=== PATIENT | female | born 1985 | race Native Hawaiian/Other Pacific Islander ===

== ENCOUNTER 2020-06-25 21:01 | Inpatient (IN) | payer OTHER ==
[~2020-06-25] VITALS: Ht 165.1 cm; Wt 110.0 kg
[~2020-06-25 21:01] MED LIST: AZIT250 PO; DIPH50; MEDR150I
[2020-06-25 21:36] LABS: BASOPHILS ABSOLUTE AUTO 0.04 K/mm3 (0.00-0.23); BASOPHILS PERCENT AUTO 0 % (0-2); EOSINOPHILS ABSOLUTE AUTO 0.03 K/mm3 (0.00-0.68); EOSINOPHILS PERCENT AUTO 0 % (0-6); Hematocrit 39.7 % (33.0-51.0); Hemoglobin 13.2 g/dL (11.5-16.0); IMMATURE GRAN ABSOLUTE AUTO 0.11 K/mm3 (0.00-0.10); IMMATURE GRAN PERCENT AUTO 1 % (0-1); LYMPHOCYTES PERCENT AUTO 13 % (21-46); MONOCYTES ABSOLUTE AUTO 0.85 K/mm3 (0.16-1.47); MONOCYTES PERCENT AUTO 5 % (4-13); Mean Corpuscular HGB 28.3 pg (26.0-34.0); Mean Corpuscular HGB Conc 33.2 g/dL (31.5-36.5); Mean Corpuscular Volume 85 fL (80-100); Mean Platelet Volume 9.9 fL (9.1-12.4); NEUTROPHILS ABSOLUTE AUTO 12.53 K/mm3 (1.96-9.15); NEUTROPHILS PERCENT AUTO 80 % (41-73); Platelet Count 334 K/mm3 (150-400); RDW Coefficient Variation 12.9 % (11.7-14.2); RDW Standard Deviation 39.6 fL (35.1-46.3); Red Blood Cell Count 4.67 M/mm3 (3.80-5.20); White Blood Cell Count 15.66 K/mm3 (4.00-11.30)
[2020-06-25] MEDS ORDERED: ENOX40I SC (21:36)
[2020-06-25] MEDS ORDERED: PRENATAL TABLE1 EAC2 PO (21:36)
[2020-06-25] MEDS ORDERED: ASPI81CH PO (21:36)
[2020-06-25 22:53] LABS: International Normalized Ratio 0.95; Prothrombin Time Results 10.2 Sec (9.7-11.5)
[2020-06-26 13:38] LABS: BASOPHILS ABSOLUTE AUTO 0.04 K/mm3 (0.00-0.23); BASOPHILS PERCENT AUTO 0 % (0-2); EOSINOPHILS ABSOLUTE AUTO 0.08 K/mm3 (0.00-0.68); EOSINOPHILS PERCENT AUTO 1 % (0-6); Hematocrit 35.6 % (33.0-51.0); Hemoglobin 11.6 g/dL (11.5-16.0); IMMATURE GRAN ABSOLUTE AUTO 0.13 K/mm3 (0.00-0.10); IMMATURE GRAN PERCENT AUTO 1 % (0-1); LYMPHOCYTES ABSOLUTE AUTO 1.97 K/mm3 (0.84-5.20); LYMPHOCYTES PERCENT AUTO 12 % (21-46); MONOCYTES ABSOLUTE AUTO 1.21 K/mm3 (0.16-1.47); MONOCYTES PERCENT AUTO 7 % (4-13); Mean Corpuscular HGB 28.2 pg (26.0-34.0); Mean Corpuscular HGB Conc 32.6 g/dL (31.5-36.5); Mean Corpuscular Volume 87 fL (80-100); Mean Platelet Volume 10.3 fL (9.1-12.4); NEUTROPHILS PERCENT AUTO 79 % (41-73); Platelet Count 293 K/mm3 (150-400); RDW Coefficient Variation 12.9 % (11.7-14.2); Red Blood Cell Count 4.11 M/mm3 (3.80-5.20); White Blood Cell Count 16.63 K/mm3 (4.00-11.30)
--- NOTE | 2020-06-26 16:10 | NUR ---
MOTHER AND BABY SLEEPING. WILL CHECK VITALS AT ANOTHER TIME
--- NOTE | 2020-06-27 09:31 | NUR ---
RN ROUNDED TO HELP W/ . NB LATCHED WELL AT BREAST. PT STATES HAS BEEN GOING REALLY WELL. INSTRUCT/DEMO WIDENING LATCH, CORRECT POSITIONING AND NIPPLE SHAPE AFTER FEEDS. INSTRUCTED PT TO FEED NB EVERY 2-3 HOURS. PT IS LOVING W/ NB, DENIES ANY FURTHER QUESTIONS OR CONCERNS.
--- NOTE | 2020-06-27 11:56 | NUR ---
DISCHARGE INSTRUCTIONS GIVEN TO PT, RE-VERBALIZED UNDERSTANDING. DENIES ANY FURTHER QUESTIONS AT THIS TIME. BANDS MATCHED, HUGS REMOVED. PT WILL RETURN TOMORROW AT 0930 FOR NB JAUNDICE CHECK. DISCHARGED IN STABLE CONDITION.
== END 2020-06-27 12:21 | disposition home or self-care (01) | DRG 806 ==
LOC: OBS 21:01 → BC 21:01 → OBS 21:19 → BC 21:23
PROVIDERS: ADMIT Nurse Practitioner Obstetrics & Gynecology
PROC: 00HU33Z Insertion of Infusion Device into Spinal Canal, Percutaneous Approach (ICD-10-PCS; 2020-06-25)
PROC: 3E0R3BZ Introduction of Anesthetic Agent into Spinal Canal, Percutaneous Approach (ICD-10-PCS; 2020-06-25)
PROC: 10E0XZZ Delivery of Products of Conception, External Approach (ICD-10-PCS; principal; 2020-06-26)
DX: O99.12 Other diseases of the blood and blood-forming organs and certain disorders involving the immune mechanism complicating childbirth (principal); D68.51 Activated protein C resistance; Z37.0 Single live birth; Z3A.39 39 weeks gestation of pregnancy
CPT/HCPCS: 36415; 51702; 85025; 85610; 85730; 86850; 86900; 86901; A9270-GY; J1650; J1885; J2001; J2210; J2405; J2590; J3010; J7120

== ENCOUNTER 2022-04-26 08:08 | Emergency (ER) | payer OTHER ==
[~2022-04-26] VITALS: Ht 167.6 cm; Wt 89.8 kg
[~2022-04-26 08:08] MED LIST changes: +ASPI81CH PO; +ENOX40I SC; +PRENATAL TABLE1 EAC2 PO
[2022-04-26] MEDS ORDERED: DEXA6 PO (08:25)
== END 2022-04-26 08:24 | disposition home or self-care (01) ==
LOC: ER 08:08
DX: U07.1 COVID-19 (principal); J02.9 Acute pharyngitis, unspecified; Z87.891 Personal history of nicotine dependence
CPT/HCPCS: 99282

== ENCOUNTER 2023-07-03 10:40 | Inpatient (IN) | payer OTHER ==
[~2023-07-03] VITALS: Ht 167.6 cm; Wt 105.0 kg
[2023-07-03] VITALS (19 sets, daily range): BP systolic 106–146; BP diastolic 54–89
[~2023-07-03 10:40] MED LIST changes: +DEXA6 PO
[2023-07-03 11:22] LABS: BASOPHILS ABSOLUTE AUTO 0.03 K/mm3 (0.00-0.23); BASOPHILS PERCENT AUTO 0 % (0-2); EOSINOPHILS ABSOLUTE AUTO 0.06 K/mm3 (0.00-0.68); EOSINOPHILS PERCENT AUTO 1 % (0-6); Hematocrit 34.4 % (33.0-51.0); Hemoglobin 11.8 g/dL (11.5-16.0); IMMATURE GRAN ABSOLUTE AUTO 0.08 K/mm3 (0.00-0.10); IMMATURE GRAN PERCENT AUTO 1 % (0-1); LYMPHOCYTES ABSOLUTE AUTO 1.94 K/mm3 (0.84-5.20); LYMPHOCYTES PERCENT AUTO 17 % (21-46); MONOCYTES ABSOLUTE AUTO 0.77 K/mm3 (0.16-1.47); MONOCYTES PERCENT AUTO 7 % (4-13); Mean Corpuscular HGB 28.9 pg (26.0-34.0); Mean Corpuscular HGB Conc 34.3 g/dL (31.5-36.5); Mean Corpuscular Volume 84 fL (80-100); Mean Platelet Volume 9.5 fL (9.1-12.4); NEUTROPHILS ABSOLUTE AUTO 8.39 K/mm3 (1.96-9.15); NEUTROPHILS PERCENT AUTO 75 % (41-73); Platelet Count 274 K/mm3 (150-400); RDW Standard Deviation 42.7 fL (35.1-46.3); Red Blood Cell Count 4.09 M/mm3 (3.80-5.20); White Blood Cell Count 11.27 K/mm3 (4.00-11.30)
--- NOTE | 2023-07-03 15:48 | NUR ---
PT RIGHT LEG STILL NUMB. REPORT OFF TO AMBERLY HOPE,RN
[2023-07-04 04:39] VITALS: BP 118/58
[2023-07-04 05:57] LABS: Hematocrit 32.4 % (33.0-51.0); Hemoglobin 10.8 g/dL (11.5-16.0); Mean Corpuscular HGB 28.3 pg (26.0-34.0); Mean Corpuscular HGB Conc 33.3 g/dL (31.5-36.5); Mean Corpuscular Volume 85 fL (80-100); Mean Platelet Volume 9.6 fL (9.1-12.4); Platelet Count 260 K/mm3 (150-400); RDW Standard Deviation 43.6 fL (35.1-46.3); Red Blood Cell Count 3.81 M/mm3 (3.80-5.20); White Blood Cell Count 14.19 K/mm3 (4.00-11.30)
[2023-07-04 08:54] VITALS: BP 125/69
[2023-07-04 11:09] VITALS: BP 114/63
[2023-07-04] MEDS ORDERED: IBUP800 PO (12:56)
--- NOTE | 2023-07-05 14:09 | NUR ---
PP[facility] - MOM DIDN'T COME TO TIRED - DAD BROUGHT BABY TO APPOINTMENT PER DAD MILK IN YESTERDAY - NO ISSUES FOR MOM - TOLD DAD TO TELL SUNNY IF SHE WOULD LIKE TO RESCHEDULE TO CALL OTHERWISE SHE CAN FOLLOW UP WITH HER PROVIDER; DAD VERBALIZED UNDERSTANDING
== END 2023-07-04 14:50 | disposition home or self-care (01) | DRG 806 ==
LOC: BC 10:40 → OBS 10:40 → BC 11:11 → OBS 11:11 → BC 19:52
PROVIDERS: ADMIT Advanced Practice Midwife
PROC: 10E0XZZ Delivery of Products of Conception, External Approach (ICD-10-PCS; principal; 2023-07-03)
PROC: 10907ZC Drainage of Amniotic Fluid, Therapeutic from Products of Conception, Via Natural or Artificial Opening (ICD-10-PCS; 2023-07-03)
PROC: 3E0R3BZ Introduction of Anesthetic Agent into Spinal Canal, Percutaneous Approach (ICD-10-PCS; 2023-07-03)
PROC: 00HU33Z Insertion of Infusion Device into Spinal Canal, Percutaneous Approach (ICD-10-PCS; 2023-07-03)
DX: O99.12 Other diseases of the blood and blood-forming organs and certain disorders involving the immune mechanism complicating childbirth (principal); D68.61 Antiphospholipid syndrome; Z37.0 Single live birth; Z3A.38 38 weeks gestation of pregnancy; O69.1XX0 Labor and delivery complicated by cord around neck, with compression, not applicable or unspecified
CPT/HCPCS: 36415; 51702; 85025; 85027; 86900; 86901; A9270; J1650; J2405; J2590; J3010; J7120